=== PATIENT | female | born 1940 | race Caucasian/White ===

== ENCOUNTER 2016-10-06 20:15 | Emergency (ER) | payer MEDICARE ==
--- NOTE | ~2016-10-06 | EKG ---
PATIENT: AJAY BLACK UNIT #: [id number] Ventricular Rate: 57 BPM Atrial Rate: 57 BPM P-R Interval: 164 ms QRS Duration: 86 ms Q-T Interval: 458 ms QTC Calculation(Bezet): 445 ms P [place]: 52 degrees Calculated R [place]: 24 degrees Calculated T [place]: 39 degrees Diagnosis Line: Sinus bradycardia Diagnosis Line: Otherwise normal ECG Diagnosis Line: No previous ECGs available Diagnosis Line: Confirmed by ZULLY JUÁREZ MD ([id number]) on Diagnosis Line: 10/07/2016 6:53:14 AM INTERPRETING : DELMAR
--- NOTE | ~2016-10-06 | CT16 ---
[facility] A Service of [facility] RADIOLOGY TEXT RESULTS PATIENT: AJAY BLACK LOCATION: [facility] : 39 UNIT #: [id number] AGE: [address]: Brendon Marcelo MD SEX: F ORDER DR: [id number] [facility] [address] [place], [place] [address] [id number] E MR#: [id number] Acc #: [id number] NAME: AJAY BLACK : 1940 SEX: F STUDY DATE/TIME: 10/06/2016 23:53 UNIT: [facility] ROOM: STUDY DESCRIPTION: CT Angio Chest for PE Attending Physician: Brendon Marcelo M.D. Ordering Physician: Brendon Marcelo M.D. Primary Care Physician: Yunier Jim M.D. MEDICAL IMAGING REPORT This report is preliminary unless electronic signature is present EXAM CT chest with contrast, pulmonary arteriography protocol, 10/06/2016 HISTORY 76-year-old female in the ED complaining of 1-week history of chest pain, chest tightness. TECHNIQUE CT examination of the chest with IV contrast using pulmonary arteriography protocol. 3-D CTA images of the pulmonary arteries were reformatted in multiple planes. This CT exam was performed with one or more of the following radiation dose reduction techniques: automatic control, adjustment of mA and/or kV according to patient size, and iterative reconstruction. FINDINGS No evidence of pulmonary embolism. Normal-caliber thoracic aorta. Heart size is within normal limits, there is no pericardial effusion. The lungs are expanded and clear. No visible pulmonary infiltrate or pleural effusion. No suspicious mass or adenopathy within the chest. Limited upper abdominal images are unremarkable. IMPRESSION Negative chest CT examination using pulmonary arteriography protocol. Dictated by... Lance Webb M.D. THIS IS AN ELECTRONICALLY VERIFIED REPORT Lance Webb M.D. at 10/07/2016 9:57 PM RGW/sherrie [facility] A Service of [facility] RADIOLOGY TEXT RESULTS PATIENT: AJAY BLACK LOCATION: [facility] #: [id number] : 38 UNIT #: [id number] AGE: [address]: Brendon Marcelo MD SEX: F ORDER DR: TD: 10/07/2016 01:17 JOB #: [id number] MEDICAL IMAGING REPORT Page 1 of 1 COPY
--- NOTE | ~2016-10-06 | CR72 ---
[facility] A Service of [facility] RADIOLOGY TEXT RESULTS PATIENT: AJAY BLACK LOCATION: [facility] : 39 UNIT #: [id number] AGE: [address]: Brendon Marcelo MD SEX: F ORDER DR: [id number] [facility] [address] [place], [place] [address] [id number] E MR#: [id number] Acc #: [id number] NAME: AJAY BLACK : 1940 SEX: F STUDY DATE/TIME: 10/06/2016 20:20 UNIT: [facility] ROOM: STUDY DESCRIPTION: CR Chest Single View Portable Attending Physician: Hernando Jones D.O. Ordering Physician: Hernando Jones D.O. Primary Care Physician: Yunier Jim M.D. MEDICAL IMAGING REPORT This report is preliminary unless electronic signature is present EXAM Portable chest INDICATIONS Chest pain for the past week. PROCEDURE Unenhanced CT of the chest COMPARISON None. FINDINGS Mild cardiomegaly. Lungs are clear. No pleural fluid. No pneumothorax. IMPRESSION Mild cardiomegaly. No active process Dictated by... Brendan Neumann M.D. THIS IS AN ELECTRONICALLY VERIFIED REPORT Brendan Neumann M.D. at 10/09/2016 9:46 AM CHAYA/vianey TD: 10/06/2016 21:57 JOB #: [id number] MEDICAL IMAGING REPORT Page 1 of 1 COPY
[2016-10-06 20:42] LABS: BASOPHIL# 0.1 X10e3 (0-0.3); BASOPHIL% 0.5 % (0-2.5); EOSINOPHIL# 0.3 X10e3 (0-0.7); EOSINOPHIL% 2.6 % (0.0-7.0); HEMATOCRIT 40.3 % (35.0-45.0); HEMOGLOBIN 13.2 gm/dL (12.0-16.0); LYMPHOCYTE# 4.1 X10e3 (1.0-3.5); LYMPHOCYTE% 35.1 % (17.0-45.0); MEAN CELL VOLUME 87.7 FL (83-96); MEAN CORPUSCULAR HEMOGLOBIN 28.8 PG (28-34); MEAN CORPUSCULAR HGB CONC 32.8 g/dL (30-36); MEAN PLATELET VOLUME 10.2 FL (6.5-11.5); MONOCYTE# 1.2 X10e3 (0-1.0); MONOCYTE% 9.9 % (3.0-12.0); NEUTROPHIL# 6.1 X10e3 (1.5-7.1); NEUTROPHIL% 51.9 % (40-75); PLATELET COUNT 164 X10e3 (140-420); RED CELL DISTRIBUTION WIDTH 14.7 % (11.0-15.5); WHITE BLOOD COUNT 11.8 X10e3 (4.0-10.5)
[2016-10-06 20:44] LABS: DIFF IND NO
[2016-10-06 20:45] LABS: POC - CKMB 1.4 ng/mL (0.0-7.9); POC - TROPONIN <0.05 ng/mL (<=0.05)
[2016-10-06 21:02] LABS: ALBUMIN SERUM 4.7 g/dL (3.5-5.0); ALKALINE PHOSPHATASE 80 U/L (32-92); ALT (SGPT) 31 U/L (10-40); AST (SGOT) 36 U/L (10-42); BILIRUBIN,TOTAL 0.6 mg/dL (0.2-2.0); BLOOD UREA NITROGEN 17 mg/dL (9-23); BUN/CREATININE RATIO 18.88; CALCIUM SERUM 9.7 mg/dL (8.4-10.2); CARBON DIOXIDE 25 mmol/L (22-31); CHLORIDE 103 mmol/L (100-111); CREATININE SERUM 0.9 mg/dL (0.6-1.4); GLOM FILT RATE Estimated 61.7 mL/min (>60); GLUCOSE FASTING 103 mg/dL (70-110); PROTEIN TOTAL SERUM 7.6 g/dL (6.0-8.3); SODIUM 137 mmol/L (135-145)
[2016-10-06 21:03] LABS: BILIRUBIN, DIRECT <0.1 mg/dL (0.0-0.2); BILIRUBIN,INDIRECT 0.5 mg/dL (0.0-0.9)
[2016-10-06 21:05] LABS: PARTIAL THROMBOPLASTIN TIME 29.8 SECONDS (23.5-31.3); PROTHROMBIN TIME (PATIENT) 10.4 SECONDS (9.6-11.5)
[2016-10-06 23:21] LABS: POC - CKMB <1.0 ng/mL (0.0-7.9); POC - TROPONIN <0.05 ng/mL (<=0.05)
== END 2016-10-07 01:33 | disposition home or self-care (01) ==
LOC: CED 20:15
PROVIDERS: Emergency Medicine
DX: R07.89 Other chest pain (principal); E78.5 Hyperlipidemia, unspecified; I10 Essential (primary) hypertension; K21.9 Gastro-esophageal reflux disease without esophagitis
CPT/HCPCS: 36415; 71010; 71275; 80048; 80076; 82553; 83880; 84484; 85025; 85379; 85610; 85730; 93005; 99284; Q9967